=== PATIENT | male | born 1970 | race Caucasian/White ===

== ENCOUNTER 2018-05-08 21:37 | Emergency (ER) | payer SELFPAY, MEDICAID ==
[2018-05-08] MEDS ORDERED: KETOROLAC 15 MG INJ IV (22:07)
[2018-05-08 22:23] LABS: ADD MAN DIFF? NO
[2018-05-08 22:26] LABS: WHITE BLOOD COUNT 7.4 10^3/ul (4.8-10.8)
[2018-05-08 22:26] LABS: BASOPHILS % 0.4 % (0.0-2.0); EOSINOPHILS # 0.7 10^3/ul (0.0-0.5); EOSINOPHILS % 9.5 % (0.0-7.0); HEMATOCRIT 42.1 % (42.0-52.0); HEMOGLOBIN 14.2 g/dl (14.0-18.0); LYMPHOCYTES # 1.9 10^3/ul (0.8-2.9); LYMPHOCYTES % 25.9 % (15.0-51.0); MEAN CORPUSCULAR HGB CONC 33.7 g/dl (32.0-37.0); MEAN CORPUSCULAR VOLUME 86.1 fl (82.0-101.0); MEAN PLATELET VOLUME 10.6 fl (7.4-10.4); MONOCYTE # 0.5 10^3/ul (0.3-0.9); MONOCYTES % 7.3 % (0.0-11.0); NEUTROPHIL # 4.2 10^3/ul (1.6-7.5); NEUTROPHILS % 56.5 % (39.0-77.0); PLATELET COUNT 276 10^3/UL (140-415); RED BLOOD COUNT 4.89 10^6/ul (4.70-6.10); RED CELL DISTRIBUTION WIDTH 12.4 % (11.5-14.5)
[2018-05-08] MEDS: ONDANSETRON 4 MG INJ IV (22:26)
[2018-05-08] MEDS: morphine 4 MG/ML VIAL IV (22:26)
[2018-05-08] MEDS: DIPHTH/TET/ACEL PERTUSS (ADULT) 0.5 ML VIAL IM* (22:27)
[2018-05-08 22:47] LABS: ALANINE AMINOTRANSFERASE 31 IU/L (13-69); ALBUMIN 4.2 g/dl (3.3-4.9); ALBUMIN/GLOBULIN RATIO 1.23; ALKALINE PHOSPHATASE 77 IU/L (42-121); ANION GAP 10 (5-13); ASPARTATE AMINO TRANSFERASE 32 IU/L (15-46); BILIRUBIN,INDIRECT 0.5 mg/dl (0-1.1); BILIRUBIN,TOTAL 0.5 mg/dl (0.2-1.3); BLOOD UREA NITROGEN 18 mg/dl (7-20); CALCIUM 9.2 mg/dl (8.4-10.2); CARBON DIOXIDE 27 mmol/L (21-31); CHLORIDE 102 mmol/L (97-110); CREATININE 0.76 mg/dl (0.61-1.24); Estimated GFR > 60 mL/min (>60); GLUCOSE 133 mg/dl (70-220); LIPASE 55 U/L (23-300); POTASSIUM 3.9 mmol/L (3.5-5.1); SODIUM 139 mmol/L (135-144); TOTAL PROTEIN 7.6 g/dl (6.1-8.1)
[2018-05-08 22:49] LABS: ETHANOL < 10.0 mg/dl (0-0)
[2018-05-08] MEDS: SOD CHLORIDE 0.9% 1,000 ML IV (22:49)
[2018-05-08] MEDS: IOHEXOL 300MG/ML 150 ML BTL (23:53)
[2018-05-08] MEDS: SOD CHLORIDE 0.9% 100 ML (23:53)
== END 2018-05-09 01:40 | disposition home or self-care (01) ==
LOC: E/R 05-09 01:40
DX: S30.810A Abrasion of lower back and pelvis, initial encounter (principal); S33.5XXA Sprain of ligaments of lumbar spine, initial encounter; I10 Essential (primary) hypertension; R93.0 Abnormal findings on diagnostic imaging of skull and head, not elsewhere classified; V03.10XA Pedestrian on foot injured in collision with car, pick-up truck or van in traffic accident, initial encounter
CPT/HCPCS: 36415; 70450; 71045; 74177; 80053; 80307; 83690; 85025; 90471; 90715; 96361; 96374; 96375; 99285-25